=== PATIENT | female | born 1980 | race African-American/Black ===

== ENCOUNTER 2019-01-30 09:05 | Emergency (ER) | payer BC ==
[~2019-01-30] VITALS: Ht 162.6 cm; Wt 93.4 kg
[2019-01-30 09:23] LABS: ABSOLUTE NEUTROPHILS 3.6 thou/uL (1.4-8.2); BASOPHILS 0.5 % (0.0-2.0); EOSINOPHILS 2.3 % (0.0-3.0); HEMATOCRIT 34.5 % (37.0-47.0); HEMOGLOBIN 11.3 gm/dL (12.0-15.0); LYMPHOCYTES 37.4 % (24.0-44.0); MCH 26.6 pg (26.0-34.0); MCHC 32.6 g/dL (28.0-37.0); MCV 81.5 fL (80.0-100.0); MONOCYTES 8.3 % (1.0-8.0); PLATELET COUNT 361 thou/uL (150-400); POLYS 51.5 % (36.0-66.0); RBC 4.23 mil/uL (4.20-5.00); RDW 14.8 % (10.5-14.5)
[2019-01-30 09:28] LABS: ANION GAP 12 mmol/L (7-16); BUN 14 mg/dL (7-18); CHLORIDE 104 mmol/L (98-107); CO2 25 mmol/L (21-32); GLUCOSE 107 mg/dL (74-106); POTASSIUM 3.6 mmol/L (3.5-5.1); SODIUM 141 mmol/L (136-145)
[2019-01-30 09:38] LABS: ALBUMIN 3.7 g/dL (3.4-5.0); MAGNESIUM 1.8 mg/dL (1.8-2.4); SGOT 13 U/L (15-37); SGPT 20 U/L (30-65); TOTAL BILIRUBIN 0.3 mg/dL (<0.1-1.0); TOTAL PROTEIN 7.7 g/dL (6.4-8.2); TROPONIN-I <0.06 ng/mL (<0.06)
[2019-01-30] MEDS ORDERED: ZPAK PO (11:02)
[2019-01-30] MEDS ORDERED: NORFLEX100 MG PO (11:02)
[2019-01-30] MEDS ORDERED: NAPROSYN500 MG PO (11:02)
[2019-01-30 11:05] VITALS: BP 111/73
--- NOTE | 2019-01-30 11:16 | EKG ---
[place] [address] [facility] [place] [address] ELECTROCARDIOGRAM REPORT Name: SAMANTHA STEVEN Room #: [facility]#: [id number] Admission: 01/30/19 Attend Phys: Discharge: Date of : 82 Report #: [id number] THIS REPORT FOR: //name// [facility] ED Test Date: 2019-01-30 Test Time: 09:05:37 Pat Name: SAMANTHA STEVEN Department: Room: Gender: F [employer]: : 1980 Requested By: Valdo Noonan Order Number: [id number] MD: Sylvain Dee Measurements Intervals [place] Rate: 95 P: 42 OK: 152 QRS: -6 QRSD: 84 T: 14 QT: 370 QTc: 465 Interpretive Statements Sinus rhythm No previous ECG available for comparison Electronically Signed On 01-30-2019 11:16:17 CDT by Sylvain Dee [email or web address] <ELECTRONICALLY SIGNED> By: Sylvain Dee MD 01/30/19 1116 0905 0905 Sylvain Dee MD /EPI
== END 2019-01-30 11:05 | disposition home or self-care (01) ==
LOC: ER 09:05
PROVIDERS: Emergency Medicine
DX: J20.9 Acute bronchitis, unspecified (principal); M43.6 Torticollis; R09.1 Pleurisy; F17.210 Nicotine dependence, cigarettes, uncomplicated; Z88.0 Allergy status to penicillin